=== PATIENT | female | born 1990 | race African-American/Black ===

== ENCOUNTER 2016-12-07 10:34 | Emergency (ER) | payer MEDICAID ==
[~2016-12-07] VITALS: Ht 165.1 cm; Wt 64.5 kg
[~2016-12-07 10:34] MED LIST: AUG875 PO; BACTDS PO; CEPH-443 PO; IBUP-1542 PO
[2016-12-07 10:36] VITALS: Ht 165.1 cm; Wt 64.5 kg
[2016-12-07] MEDS ORDERED: LIDOCAINE/MYLANTA 40 ML BTL PO ONE (12:00)
[2016-12-07] MEDS ORDERED: MAG355OR14 PO (12:37)
--- NOTE | 2016-12-07 12:46 | ERD ---
ER Documentation Chief Complaint Date/Time DATE: 12/07/16 TIME: 12:43 Chief Complaint sore throat x 2 days with fever , chills HPI Patient is a 18-year-old female with no medical problems who presents with a sore throat. The symptoms started on Thursday. The patient says "I took a multivitamin and it got stuck". She said that she is able to breathe and talk. She said that she started with some chills and subjective fever after this episode. She feels like the pill still may still be stuck. She has had no treatment as of yet. ROS All systems reviewed and are negative except as per history of present illness. Medications Home Meds Active Scripts Mag Hydrox/Al Hydrox/Simeth (Maalox Advanced Suspension) 355 Ml Oral.susp, 355 ML PO BID, #1 Prov:SHAHID MORENO MD 12/07/16 Cephalexin* (Keflex*) 500 Mg Capsule, 500 MG PO QID for 7 Days, CAP Prov:PRESTON GRIMALDO MD 04/02/15 Ibuprofen* (Motrin*) 600 Mg Tab, 600 MG PO Q6, #20 TAB Prov:PRESTON GRIMALDO MD 04/02/15 Sulfamethoxazole-Trimethoprim* (Bactrim* DS) 800-160 Mg Tab, 1 TAB PO BID for 14 Days, TAB Prov:PAUL GALINDO PA-C 03/20/15 Amoxicillin-Clavulanate K* (Augmentin*) 875 Mg Tab, 875 MG PO BID for 7 Days, TAB Prov:SIRI RESTREPO PA-C 02/07/15 Allergies Allergies: Coded Allergies: No Known Allergy (Unverified , 02/07/15) PMhx/Soc Medical and Surgical Hx: pt denies Medical Hx, pt denies Surgical Hx History of Surgery: No Anesthesia Reaction: No Hx Neurological Disorder: No Hx Respiratory Disorders: No Hx Cardiac Disorders: No Hx Psychiatric Problems: No Hx Miscellaneous Medical Probl: No Hx Alcohol Use: No Hx Substance Use: No Hx Tobacco Use: No Smoking Status: Unknown if ever smoked FmHx Family History: diabetes Physical Exam Vitals Vital Signs Date Time Temp Pulse Resp B/P Pulse Ox O2 Delivery O2 Flow Rate FiO2 12/07/16 10:36 99.6 92 18 121/76 100 Physical Exam Const: No acute distress Head: Atraumatic Eyes: Normal Conjunctiva ENT: Normal External Ears, Nose and Mouth. No signs of infection or foreign body Neck: Full range of motion..~ No meningismus. No stridor over the neck Resp: Clear to auscultation bilaterally Cardio: Regular rate and rhythm, no murmurs Abd: Soft, non tender, non distended. Normal bowel sounds Skin: No petechiae or rashes Back: No midline or flank tenderness Ext: No cyanosis, or edema Neur: Awake and alert Psych: Normal Mood and Affect Results 24 hrs Current Medications Medications (Trade) Dose Ordered Sig/Suzanne Route PRN Reason Start Time Stop Time Status Last Admin Dose Admin Miscellaneous Medication (Gi Cocktail (2)) 40 ml ONCE ONCE PO 12/07/16 12:00 12/07/16 12:01 DC 12/07/16 12:03 Procedures/MDM X-ray Soft Tissue Neck 2V Interpreted by me: Bones: No fracture Joints: No dislocation Foreign body: None Patient is a 26-year-old female with no medical problems who presents with a sore throat. The patient feels like there may be a pill that got stuck. She has no sign of foreign body on x-ray. She has no difficulty with breathing or swallowing. It has been 6 days and at this point I doubt that the pill is truly stuck this is most likely irritation from the area that the pill was stuck in. The patient may benefit from ENT follow-up however and therefore she can follow-up with the ENT doctor of her choice. The patient should follow-up the local clinics within 24-48 hours for reevaluation. She was given a GI cocktail in the emergency department and will be given a prescription for Maalox. She can return sooner for any worsening symptoms. She is well- appearing and well-hydrated upon discharge. Departure Diagnosis: Primary Impression: Sore throat Condition: Fair Patient Instructions: Self-Care for Sore Throats Referrals: COMMUNITY CLINICS YOU HAVE RECEIVED A MEDICAL SCREENING EXAM AND THE RESULTS INDICATE THAT YOU DO NOT HAVE A CONDITION THAT REQUIRES URGENT TREATMENT IN THE EMERGENCY DEPARTMENT. FURTHER EVALUATION AND TREATMENT OF YOUR CONDITION CAN WAIT UNTIL YOU ARE SEEN IN YOUR DOCTORS OFFICE WITHIN THE NEXT 1-2 DAYS. IT IS YOUR RESPONSIBILITY TO MAKE AN APPOINTMENT FOR FOLOW-UP CARE. IF YOU HAVE A PRIMARY DOCTOR --you should call your primary doctor and schedule an appointment IF YOU DO NOT HAVE A PRIMARY DOCTOR YOU CAN CALL OUR PHYSICIAN REFERRAL HOTLINE AT IF YOU CAN NOT AFFORD TO SEE A PHYSICIAN YOU CAN CHOSE FROM THE FOLLOWING [facility] [address] [facility] [address] [facility] [address] [facility] [address] [facility] [address] [facility]. [facility] [address] Additional Instructions: Call your primary care doctor TOMORROW for an appointment during the next 1-2 days.See the doctor sooner or return here if your condition worsens before your appointment time. SHAHID MORENO MD Dec 07, 2016 12:46
--- NOTE | 2016-12-07 13:04 | RADRPT ---
PROCEDURE: Neck soft tissue x-ray. CLINICAL INDICATION: Difficulty swallowing. Possible foreign body. TECHNIQUE: AP and lateral views of the soft tissues of the neck were performed. COMPARISON: None. FINDINGS: The airway is noted to be patent. No radiopaque foreign object is present. The prevertebral soft t issues are normal. The osseous structures are normal. The skull is intact. The mandible is intact. No radiopaque foreign body. IMPRESSION: Unremarkable examination. No radiopaque foreign body is present. RPTAT: EE .Nai Booker MD, MD Date Time Electronically viewed and signed by .Nai Booker MD, MD on 12/07/2016 13:03 .F/
== END 2016-12-07 13:05 | disposition home or self-care (01) ==
LOC: FTE 10:34
DX: J02.9 Acute pharyngitis, unspecified (principal)
CPT/HCPCS: 70360; Z7502; Z7610